=== PATIENT | female | born 1960 | race Caucasian/White ===

== ENCOUNTER 2018-10-16 07:48 | Inpatient (IN) ==
--- NOTE | 2018-10-15 15:03 | Anesthesia Evaluation PreOp ---
Date of Encounter: 10/16/18 Time of Encounter: 08:31 - Past History Planned Operation: robo right adrenalectomy Cardiac History: CHF (10-15 echo was normal with EF 65%, no valve issues per chart), HTN, Hyperlipidemia Pulmonary History: Former smoker (quit 2014), COPD (O2 at hs), Other (pulmonary hypertension(borderline/ dx on CT scan, patient has declined workup)) [employer]SE [employer]TER History: Denies Any Significant HX Other Medical History: Other (morbid obesity, right adrenal mass) Anesthesia History: No Prior Anesthetic Complications, Past Anesthesia (C/S x 2 remotely) Alcohol Use: none Drug use: none Medications and Allergies Allergy/AdvReac Type Severity Reaction Status Date / Time No Known Allergies Allergy Verified 10/11/18 15:47 - Meds/Allergy Pre-op Review Medications Reviewed: Yes Allergies Reviewed: Yes Beta Blockers on Current Med List: Yes (coreg) If Beta Blockers taken, Date/Time (Last Dose taken): today 629 Anesthesia Results - Labs Laboratory Tests 10/11/18 10/11/18 16:00 16:00 Hgb 13.5 Hct 43.5 Plt Count 249 Potassium 3.9 BUN 22 H Creatinine 1.06 - Imaging EKG: report reviewed (SINUS RHYTHM) Anesthesia Exam Selected Entries 10/16/18 08:33 Temperature 99.0 F Pulse Rate 60 Respiratory Rate 18 Blood Pressure 110/67 O2 Sat by Pulse Oximetry 92 Weight: 103kg BMI 43 NPO (# of Hours): 8 - HEENT Pupil (Motor): EOMI Mallampati: III Teeth: Missing, Edentulous Denture Type: Upper: Complete, Partial Oral Opening: Less than or equal to 3 - HORSE RACE [employer]TER LOC: Oriented [employer]ORSE [employer] Motor: Normal RUE, Normal LUE, Normal RLE, Normal LLE, Normal Face [employer]SE [employer] Sensory: Normal: RUE, LUE, RLE, LLE, Face - Cardiac Rhythm: Regular Murmur: None - Pulmonary Breath Sounds: bilateral Clear Respiratory Effort: Symmetrical Anesthesia Assess/Plan ASA Score: 3 Level of consciousness: Cooperative, Oriented Anesthetic Plan: General Monitoring Plan: Standard Monitors, A-Line Recovery Plan: PACU (agrees to GA and lines (chris and cvc if needed). Will T&S and is agreeable to blood if needed)
[2018-10-16] MEDS ORDERED: Albuterol 2.5 MG/3 ML NEBULIZER ONE (08:22)
[2018-10-16] MEDS ORDERED: Albuterol 2.5 MG/3 ML NEBULIZER IH ONE (08:25)
[2018-10-16] MEDS ORDERED: CeFAZolin Syr 2,000MG/20 ML 2,000 MG/20 ML SYRINGE IVPB ONE (08:25)
[2018-10-16] MEDS ORDERED: Ringers Solution, Lactated 1,000 ML IVC SCH ×2 (08:30→09:00)
[2018-10-16] MEDS ORDERED: Ondansetron 4 MG/2 ML VIAL ONE (08:37)
[2018-10-16] MEDS ORDERED: *HR* Rocuronium Bromide 50 MG/5 ML VIAL ONE (08:37)
[2018-10-16] MEDS ORDERED: Dexamethasone 4 MG/ML VIAL ONE ×2 (08:37)
[2018-10-16] MEDS ORDERED: Lidocaine -MPF 2% 2 ML VIAL ONE ×3 (08:37→12:35)
[2018-10-16] MEDS ORDERED: *HR* Succinylcholine 200 MG/10 ML VIAL IVP ONE (08:37)
[2018-10-16] MEDS ORDERED: Lidocaine -MPF 4% 5 ML AMPUL ONE (08:37)
[2018-10-16] MEDS ORDERED: *HR* FentaNYL (PF) 100 MCG/2 ML VIAL ONE (08:39)
[2018-10-16] MEDS ORDERED: *HR* Midazolam HCl 2 MG/2 ML VIAL ONE (08:39)
[2018-10-16] MEDS ORDERED: *HR* Phenylephrine 10 MG/ML VIAL ONE (08:39)
[2018-10-16] MEDS ORDERED: *HR* Propofol 200 MG/20 ML VIAL IVP ONE (08:39)
[2018-10-16] MEDS ORDERED: Heparin 1,000 UNITS/500 mL 500 ML ONE (08:40)
[2018-10-16] MEDS ORDERED: EPHEDrine 50 MG/ML VIAL ONE (08:40)
[2018-10-16] MEDS ORDERED: Dexmedetomidine HCl 400 MCG/100 ML MLS IVC ONE (08:49)
[2018-10-16] MEDS ORDERED: NiCARdipine 2.5 MG/10 ML Syringe IVPB ONE (08:49)
[2018-10-16] MEDS ORDERED: *HR* OxyCODONE Immed Rel 5 MG TABLET PO PRN (09:00)
[2018-10-16] MEDS ORDERED: *HR* Promethazine 25 MG/ML VIAL IVP PRN (09:00)
[2018-10-16] MEDS ORDERED: Celecoxib 200 MG CAPSULE PO ONE (09:02)
[2018-10-16] MEDS ORDERED: Gabapentin 300 MG CAPSULE PO ONE (09:02)
[2018-10-16] MEDS ORDERED: traMADol 50 MG TABLET PO ONE (09:02)
--- NOTE | 2018-10-16 10:03 | History & Physical Report ---
Date of Encounter: 10/16/18 Time of Encounter: 10:02 24 Hour HP Update - Instructions Instructions: If the History and Physical is less than 30 days old and was completed prior to A.M. admission and or procedure and has NOT been updated on calendar day of procedure please complete this update prior to performing procedure. - Update Patient reports changes in Medical Condition: No Changes in examination, assessment, or condition: No Changes in Medication: No Preop tests/diagnostics Reviewed: Yes Surgery Remains Indicated: Yes Consent for Planned Operative Procedure(s) Verified: Yes - Pre-Operative Checklist Preoperative Checklist Indicated: Yes Prophylactic Antibiotic Ordered: Yes Home Medications Include Beta Ivana: Yes Beta Ivana Taken Today (Day of Surgery): Yes
[2018-10-16] MEDS ORDERED: *HR* Heparin 5,000 UNIT/ML VIAL ONE (10:32)
[2018-10-16] MEDS ORDERED: *HR* HYDROMORPHONE 2 MG/ML VIAL ONE (13:01)
[2018-10-16] MEDS: *HR* HYDROmorphone (PF) 1 MG/ML SYRINGE IVP PRN ×2 (13:13→13:20)
--- NOTE | 2018-10-16 13:45 | Anesthesia Evaluation Post Op ---
Date of Encounter: 10/16/18 Time of Encounter: 13:44 - Vital Signs Vital Signs: Selected Entries 10/16/18 13:35 Temperature 97.8 F Pulse Rate 76 Respiratory Rate 12 Blood Pressure 115/97 O2 Sat by Pulse Oximetry 99 - Lungs Lungs: Clear Ascult./Percussion - Airway Airway: Non-obstructed - Cardiovascular Regular Rate - Mental Status Mental Status: Alert & Oriented, Answers Appropriately - Pain Pain Scale: 3 Pain Scale used: Numeric (1 - 10) - Nausea Vomiting Nausea Vomiting: Not Present - Hydration Hydration: Ice chips - Discharge PostOp Status: Transfer Patient to floor
[2018-10-16] MEDS ORDERED: Ketorolac 15 MG/ML VIAL IVP PRN (14:13)
[2018-10-16] MEDS ORDERED: Ondansetron 4 MG/2 ML VIAL IVP PRN (14:13)
[2018-10-16] MEDS: 0.9 % Sodium Chloride 1,000 ML IVC SCH (15:34)
--- NOTE | 2018-10-16 18:58 | Operative Note ---
Date of procedure: 10/16/18 Pre-op diagnosis: right adrenal mass Post-op diagnosis: same Procedure: Robotic Right adrenalectomy Anesthesia: GETA Surgeon: Negro Torres Was there an intellectual property legal assistant present: Yes Poultry Hatchery Manager: Heike Montes Estimated blood loss (cc): 5 Specimen: adrenal gland Condition: stable Disposition: floor Procedure in Detail: After informed consent, patient was taken the operating room placed in a supine position. After adequate sedation anesthesia patient was placed on a beanbag in the left lateral decubitus position. The bed was then placed in a jackknife position. The patient was then placed in slight Trendelenburg. The abdomen was prepped and draped. A 12 mm cannulas placed at the midclavicular line approximate 6 finger breast below the costal margin. Once it was inserted and pneumoperitoneum was created. 3 additional 8 mm cannulas were placed within the abdomen under direct visualization. There were 2 additional 5 mm cannulas placed should teach equally along the right lateral abdominal wall as well. Once all cannulas were in place the liver was retracted with a pretzel retractor in place to the fast clamp. The robot was docked over the patient's right hip and flank. There were adhesions taken down from the gallbladder. Once completed I was able to visualize the retrohepatic space. The vena cava was easily identified. An incision was made in the retroperitoneum with a vessel sealer. At this point dissection along the vena cava was carried out cephalad. Dissection was further carried out towards the anterior surface of the kidney. Once the kidney had been identified our attention was turned more cephalad. Has able to identify adrenal gland. Once it had been adequately identified the inferior pole of the adrenal gland was dissected first. The posterior aspect was dissected next. All of which occurred with the vessel sealer. Once it had been fully mobilized been the medial aspect of the gland was taken with a vessel sealer until we encountered the right adrenal vein. This was clipped with a clip. The vena cava was kept out of harm's way. Once the adrenal gland was fully dissected free, it was placed in endoscopic bag. This was removed through the 12 mm cannula site. We confirmed hemostasis had been obtained. At this point the pneumoperitoneum was evacuated. The 12 mm cannula site was closed with an 0 Vicryl suture. Skin incisions were closed with 4-0 Vicryl suture and Dermabond. He tolerated the procedure well.
[2018-10-17] MEDS: 0.9 % Sodium Chloride 1,000 ML IVC SCH (05:52)
[2018-10-17 07:24] VITALS: BP 116/72
--- NOTE | 2018-10-17 09:53 | Discharge Summary ---
Orders not resulted at time of discharge: Pending orders 10/16/18 12:49 Surgical Pathology [PTH] Routine Date of Encounter: 10/17/18 Time of Encounter: 09:57 - Discharge Diagnosis (1) Adrenal mass Priority: Primary Status: Acute General Surgery Exam Initial Vital Signs Temp Pulse Resp BP Pulse Ox 37.2 C 60 18 110/67 92 10/16/18 08:33 10/16/18 08:33 10/16/18 08:33 10/16/18 08:33 10/16/18 08:33 Vital Signs Temp Pulse Resp BP Pulse Ox 10/17/18 07:40 90 10/17/18 07:23 36.7 C 66 18 116/72 93 10/17/18 03:35 37.2 C 75 16 104/67 93 10/16/18 23:47 36.8 C 77 16 105/70 93 10/16/18 17:25 36.9 C 79 15 116/74 98 10/16/18 16:31 36.6 C 91 15 133/82 95 10/16/18 15:20 36.8 C 91 15 103/73 94 10/16/18 14:53 36.7 C 84 15 97/64 92 10/16/18 14:18 96 10/16/18 14:14 36.4 C 85 14 116/65 96 10/16/18 13:55 36.6 C 79 16 107/87 95 10/16/18 13:45 79 16 119/73 94 10/16/18 13:35 36.6 C 76 12 115/97 99 10/16/18 13:25 73 12 111/74 94 10/16/18 13:15 72 14 112/68 95 10/16/18 13:05 36.4 C 69 14 145/93 96 Intake and Output 10/16/18 10/17/18 10/17/18 23:59 07:59 15:59 Intake Total 2760 / 2780 1900 / 2140 240 / 2140 Output Total 750 / 765 450 / 450 Balance 2009 / 2014 1450 / 1690 240 / 1690 Intake: IV Fluids 1000 / 1000 0.9 % Sodium Chloride 1,000 ML 1000 / 1000 @ 75 mls/hr IVC .[id number] [facility] Rx #:[id number] Oral 2760 / 2760 900 / 1140 240 / 1140 Output: Urine 750 / 750 450 / 450 Other: Meal Dinner Breakfast Percent of Meal Consumed 100% 10% # Voids 0 # Bowel Movements 0 0 Weight 102.6 kg Patient Weight 10/17/18 23:59 Weight 102.6 kg VITAL SIGNS: Reviewed. See [facility] GENERAL: In no apparent distress. HEENT: Normocephalic, atraumatic, pupils are equal and reactive, extraocular motions intact, oropharynx is pink and moist, there is no neck adenopathy or JVD noted. CHEST/RESPIRATORY: The thorax is free from signs of trauma. Lung sounds: clear to auscultation, normal respiratory effort CARDIAC: Regular rate and rhythm. Normal S1 and S2, without murmurs, gallops, or rubs. VASCULAR: No Edema. 2+ peripheral pulses. ABDOMEN: soft, expected postoperative tenderness, active bowel sounds INCISION: Surgical incision is clean, dry, and intact. There are no signs of cellulitis or infection noted. MUSCULOSKELETAL: Good range of motion of all major joints. Extremities without clubbing, cyanosis or edema. NEUROLOGIC EXAM: Alert and oriented x 3. Speech normal. Follows commands. PSYCHIATRIC: Mood normal. SKIN: No rash or lesions. - Hospital Course Hospital course: Ms. Loera is a 58 year old female who presented on 10/16/2018 and underwent an elective right robotic adrenal colectomy by Dr. Torres. Her postoperative course has been uncomplicated. She is ambulating avoiding without difficulty, tolerating a diet without nausea or vomiting, vital signs are stable, and she is afebrile. We will begin discharge planning to home with a follow-up in approximately 2 weeks. - Time Spent with Patient Total time spent providing and/or coordinating discharge services: - Discharge Medications Prescriptions: New Docusate Sodium [Colace] 100 mg PO BID PRN #30 capsule PRN Reason: Contstipation Ibuprofen 800 mg PO Q8H PRN #30 tablet PRN Reason: Postsurgical pain OxyCODONE/APAP 5/325 [Percocet 5/325 MG] 1 each PO Q6HR PRN 7 Days #28 tablet PRN Reason: Pain Ondansetron ODT [Zofran ODT] 4 mg SL Q4HR PRN #15 tab.rapdis PRN Reason: Postsurgical nausea Continued Cholecalciferol (D-3) [Vitamin D] 2,000 unit PO DAILY Aspirin [Lo-Dose Aspirin EC] 81 mg PO DAILY Baclofen [Lioresal] 10 mg PO BID Albuterol Sulfate [Ventolin Hfa] 2 puff IH Q6H PRN PRN Reason: Shortness Of Breath Diclofenac Sodium 1 applic TP TID PRN PRN Reason: Pain Carvedilol [Coreg] 6.25 mg PO BID Capsaicin 0.025% [Trixaicin] 1 applic TP DAILY PRN PRN Reason: Pain hydroCHLOROthiazide [Hydrochlorothiazide] 25 mg PO DAILY Gabapentin [Neurontin] 100 mg PO TID raNITIdine HCl [Zantac] 150 mg PO DAILY PRN PRN Reason: Indigestion Temazepam [Restoril] 30 mg PO HS Atorvastatin [Lipitor] 40 mg PO DAILY Sertraline [Zoloft] 150 mg PO QAM Discontinued Naproxen 500 mg PO BID Home Medications: Albuterol Sulfate [Ventolin Hfa] 2 puff IH Q6H PRN 10/16/18 [History] Aspirin [Lo-Dose Aspirin EC] 81 mg PO DAILY 10/16/18 [History] Atorvastatin [Lipitor] 40 mg PO DAILY 10/16/18 [History] Baclofen [Lioresal] 10 mg PO BID 10/16/18 [History] Capsaicin 0.025% [Trixaicin] 1 applic TP DAILY PRN 10/16/18 [History] Carvedilol [Coreg] 6.25 mg PO BID 10/16/18 [History] Cholecalciferol (D-3) [Vitamin D] 2,000 unit PO DAILY 10/16/18 [History] Diclofenac Sodium 1 applic TP TID PRN 10/16/18 [History] Gabapentin [Neurontin] 100 mg PO TID 10/16/18 [History] Sertraline [Zoloft] 150 mg PO QAM 10/16/18 [History] Temazepam [Restoril] 30 mg PO HS 10/16/18 [History] hydroCHLOROthiazide [Hydrochlorothiazide] 25 mg PO DAILY 10/16/18 [History] raNITIdine HCl [Zantac] 150 mg PO DAILY PRN 10/16/18 [History] Docusate Sodium [Colace] 100 mg PO BID PRN #30 capsule 10/17/18 [Rx] Ibuprofen 800 mg PO Q8H PRN #30 tablet 10/17/18 [Rx] Ondansetron ODT [Zofran ODT] 4 mg SL Q4HR PRN #15 tab.rapdis 10/17/18 [Rx] OxyCODONE/APAP 5/325 [Percocet 5/325 MG] 1 each PO Q6HR PRN 7 Days #28 tablet 10/17/18 [Rx] Allergies/Adverse Reactions: Allergy/AdvReac Type Severity Reaction Status Date / Time No Known Allergies Allergy Verified 10/11/18 15:47 Date of admission: 10/16/18 13:55 Primary care physician: Yumiko Santoro CNP Discharging clinician: Deya Mayorga Labs on day of discharge: Labs from last 24 hours 10/16/18 11:00 Blood Type A POSITIVE Antibody Screen NEGATIVE - Patient Status Disposition: Home, Self-Care Condition: Good Functional capacity at discharge: independent ambulation Overall status at discharge: patient is progressing back to baseline - Discharge Instructions Instructions: Laparoscopic Adrenalectomy (DC) Follow Up With: Yumiko Santoro CNP [Primary Care Provider] - Deya Mayorga CNP [Advanced Practice Nurse] - 10/29/18 3:30 pm () Additional Instructions: General Surgical Discharge Instructions 1. No pushing, pulling, or lifting greater than 15 lbs for 4 weeks (depending upon procedure). 2. You may shower beginning today, but no tub baths, soaking, or swimming for 2 weeks. 3. You may resume driving when you are off narcotics and are safe to react in a car. 4. Take ibuprofen every 8 hours for discomfort. If this does not relieve discomfort, you may take the as needed Percocet. Take narcotics as directed. Do not take more narcotics then directed and do not share your narcotics with any other person. Do not drink alcohol while on narcotics. Do not take ibuprofen and naproxen during the same 24-hour period. If you prefer naproxen twice daily, stop the ibuprofen. 5. Take stool softeners (Colace) or a water based laxative (Miralax) while taking narcotics. You may hold for loose stools. 6. Report any fevers greater than 100.5F, increase abdominal discomfort, drainage that looks like pus, increased redness or pain at the surgical site, or any vomiting. 7. Report any pain in the calves, shortness of breath, or rapid heartbeat. 8. Follow-up in the office as directed. 9. If you were prescribed antibiotics, do not stop them without talking to your provider. - Diet and Activity Activity: increase activity as tolerated Diet: advance to your usual diet
[2018-10-17] MEDS ORDERED: *HR* OxyCODONE/APAP 5/325 TABLET PO ONE (09:57)
[2018-10-17] MEDS ORDERED: Ondansetron 4 MG/2 ML VIAL IVP ONE (09:58)
== END 2018-10-17 11:18 | disposition home or self-care (01) | DRG 614 ==
LOC: SAMDAY 07:48 → 3ANU 13:55
PROVIDERS: ADMIT Surgery; ATTEND Surgery